=== PATIENT | female | born 1960 | race Two or more races ===

== ENCOUNTER 2021-03-04 08:27 | Outpatient (REF) | payer MEDICAID, OTHER, SELFPAY | END 2021-03-04 08:28 | disposition home or self-care (01) | LOC: HO.SCI 08:27 | PROVIDERS: Visit Provider Registered Nurse | DX: Z13.89 Encounter for screening for other disorder (principal) ==

== ENCOUNTER 2021-09-17 11:11 | Outpatient (REF) | payer MEDICAID, OTHER, SELFPAY ==
[2021-09-17 13:25] LABS: Binax Internal Control QC Valid; Binax Now Covid-19 Ag Positive (Negative)
== END 2021-09-17 11:12 | disposition home or self-care (01) ==
LOC: HO.LAB 11:11
PROVIDERS: Visit Provider Internal Medicine
DX: Z20.822 Contact with and (suspected) exposure to COVID-19 (principal)
CPT/HCPCS: 36415; C9803

== ENCOUNTER 2021-09-23 13:05 | Outpatient (REF) | payer MEDICAID, OTHER, SELFPAY ==
[2021-09-23 15:17] LABS: Binax Internal Control QC Valid; Binax Now Covid-19 Ag Negative (Negative)
== END 2021-09-23 13:06 | disposition home or self-care (01) ==
LOC: HO.LAB 13:05
PROVIDERS: Visit Provider Internal Medicine
DX: Z20.822 Contact with and (suspected) exposure to COVID-19 (principal)
CPT/HCPCS: C9803